=== PATIENT | female | born 1985 | race Caucasian/White ===

== ENCOUNTER 2018-11-18 21:38 | Emergency (ER) | payer MEDICAID ==
[~2018-11-18] VITALS: Ht 167.6 cm; Wt 57.4 kg
[2018-11-18] MEDS ORDERED: acetaminophen 325mg tablet PO ONE (23:55)
[2018-11-18] MEDS ORDERED: amox tr/potassium clavulanate 875/125mg TAB PO ONE (23:55)
[2018-11-18] MEDS ORDERED: BUPIVAcaine/PF 7.5mg/ml (0.75%) 10ml vial IJ ONE (23:55)
[2018-11-19] MEDS ORDERED: AMOX-580 PO (00:12)
[2018-11-19] MEDS ORDERED: HYDROcodone/acetaminophen 5mg/325mg tablet PO ONE (01:00)
--- NOTE | 2018-11-19 01:01 | NUR ---
Discussed pt's increased heart rate with HOLLY Kapoor along with pt's lack of pain relief with Tylenol; new order received.
[2018-11-19 01:04] VITALS: BP 118/81
== END 2018-11-19 01:11 | disposition home or self-care (01) ==
LOC: ER 21:39
DX: K02.9 Dental caries, unspecified (principal); M54.5 Low back pain; M54.2 Cervicalgia; Z79.899 Other long term (current) drug therapy
CPT/HCPCS: 99284; J3490

== ENCOUNTER 2023-12-14 04:25 | Emergency (ER) | payer MEDICAID ==
[~2023-12-14] VITALS: Ht 167.6 cm; Wt 56.8 kg
[2023-12-14] MEDS: normal saline 1000ml 1,000 ML IV ONE ×2 (05:04→06:00)
[2023-12-14 05:06] LABS: BASOPHILS # (AUTO) 0.1 X10'3 (0-0.2); BASOPHILS % (AUTO) 0.8 % (0-1); EOSINOPHILS % (AUTO) 0.2 % (0-6); HEMATOCRIT 39.1 % (35.0-45.0); HEMOGLOBIN 12.9 g/dl (12.0-16.0); LYMPHOCYTES % (AUTO) 11.8 % (21-51); MEAN CORPUSCULAR HEMOGLOBIN 33.2 PG (27.0-31.0); MEAN CORPUSCULAR HGB CONC 32.9 g/dL (33.0-36.5); MEAN CORPUSCULAR VOLUME 100.8 FL (78-98); MEAN PLATELET VOLUME 7.9 FL (7.4-10.4); MONOCYTES # (AUTO) 0.4 X10'3 (0-0.9); MONOCYTES % (AUTO) 4.9 % (2-12); NEUTROPHILS # (AUTO) 7.1 X10'3 (1.8-7.7); NEUTROPHILS % (AUTO) 82.3 % (42-75); PLATELET COUNT 237 X10'3 (140-440); RED BLOOD COUNT 3.88 X10'6 (4.20-5.60); RED CELL DISTRIBUTION WIDTH 12.7 % (11.5-14.5); WHITE BLOOD COUNT 8.6 X10'3 (4.5-11.0)
[2023-12-14 05:27] LABS: ALBUMIN 3.7 G/DL (3.4-5.0); ANION GAP 18 (8-16); BLOOD UREA NITROGEN 19 MG/DL (7-18); BUN/CREATININE RATIO 8.7 (10.0-20.0); CALCIUM 8.5 MG/DL (8.5-10.1); CHLORIDE 106 MMOL/L (99-107); CREATININE 2.19 MG/DL (0.40-0.90); GLUCOSE 119 MG/DL (70-104); SODIUM 142 MMOL/L (135-145); THYROID STIMULATING HORMONE 2.88 ulU/ml (0.34-4.50); TOTAL CARBON DIOXIDE 18.4 MMOL/L (24-32); eCRCL 31 ML/MIN; eGFR 25 ML/MIN
[2023-12-14 05:29] LABS: POTASSIUM 3.5 MMOL/L (3.5-5.1)
[2023-12-14] MEDS ORDERED: NO HOME MEDS (05:29)
[2023-12-14 05:30] LABS: ETHANOL < 10 MG/DL (<10)
[2023-12-14] MEDS: chlordiazePOXIDE 25mg capsule PO ONE (06:00)
[2023-12-14 06:13] LABS: CREATINE KINASE 253 U/L (26-192)
[2023-12-14] MEDS: ringers solution, lacted 1,000 ML IV ONE ×2 (07:12→09:59)
[2023-12-14 08:53] LABS: ALBUMIN 2.6 G/DL (3.4-5.0); ANION GAP 11 (8-16); BLOOD UREA NITROGEN 15 MG/DL (7-18); BUN/CREATININE RATIO 12.3 (10.0-20.0); CALCIUM 7.2 MG/DL (8.5-10.1); CHLORIDE 111 MMOL/L (99-107); CREATININE 1.22 MG/DL (0.40-0.90); GLUCOSE 62 MG/DL (70-104); POTASSIUM 3.5 MMOL/L (3.5-5.1); SODIUM 143 MMOL/L (135-145); TOTAL CARBON DIOXIDE 20.8 MMOL/L (24-32); eCRCL 56 ML/MIN; eGFR 49 ML/MIN
[2023-12-14] MEDS: diazepam inj 5 MG/ML inj. IV STA (10:00)
[2023-12-14 10:31] LABS: URINE HCG NEGATIVE (NEG)
[2023-12-14 10:33] LABS: BILIRUBIN,URINE NEGATIVE (Neg); CLARITY,URINE SLIGHTLY CLOUDY (Clear); COLOR,URINE YELLOW (Yellow); GLUCOSE, URINE NEGATIVE (Neg); KETONES,URINE 40 mg/dl (Neg); LEUKOCYTE ESTERASE ,URINE NEGATIVE (Neg); NITRITES, URINE POSITIVE (Neg); OCCULT BLOOD,URINE SMALL (Neg); PH,URINE 5.5 (4.8-8.0); PROTEIN,URINE TRACE mg/dl (Neg); UROBILINOGEN,URINE 0.2 E.U/dL (0.2-1.0)
[2023-12-14 10:39] LABS: UA COLLECTION TYPE OTHER
[2023-12-14 10:41] LABS: URINE AMPHETAMINE SCREEN POSITIVE (Neg); URINE BARBITUATE SCREEN NEGATIVE (Neg); URINE BENZODIAZEPINES SCREEN NEGATIVE (Neg); URINE CANNABINOID SCREEN NEGATIVE (Neg); URINE COCAINE SCREEN NEGATIVE (Neg); URINE METHADONE SCREEN NEGATIVE (Neg); URINE PHENCYCLIDINE SCREEN NEGATIVE (Neg)
[2023-12-14] MEDS: diazepam inj 5 MG/ML inj. IV ONE (10:41)
[2023-12-14 11:21] LABS: BACTERIA,URINE 4+ /HPF (Neg)
[2023-12-14 11:24] LABS: RBC,URINE NONE SEEN /HPF (0-2)
[2023-12-14 11:31] LABS: SQUAMOUS EPITHELIAL CELL,UR MODERATE /LPF (FEW)
[2023-12-14] MEDS: CefTRIAXone/D5W-Rocephin 1gm 50 ML IV ONE (15:15)
[2023-12-14] MEDS ORDERED: cephalexin 250mg capsule PO ONE (15:28)
[2023-12-14] MEDS: cephalexin 250mg capsule PO SCH (19:24)
[2023-12-14] MEDS: OLANZapine 2.5MG tablet PO SCH (19:24)
[2023-12-14 21:05] LABS: ALANINE AMINOTRANSFERASE 37 U/L (12-78); ALBUMIN 2.6 G/DL (3.4-5.0); ALBUMIN/GLOBULIN RATIO 0.9 (1.1-1.5); ALKALINE PHOSPHATASE 88 IU/L (46-116); ANION GAP 6 (8-16); ASPARTATE AMINO TRANSFERASE 75 U/L (10-37); BILIRUBIN,TOTAL 0.9 MG/DL (0.1-1.0); BLOOD UREA NITROGEN 14 MG/DL (7-18); BUN/CREATININE RATIO 17.1 (10.0-20.0); CALCIUM 7.9 MG/DL (8.5-10.1); CHLORIDE 106 MMOL/L (99-107); CREATININE 0.82 MG/DL (0.40-0.90); GLUCOSE 110 MG/DL (70-104); POTASSIUM 3.2 MMOL/L (3.5-5.1); SODIUM 139 MMOL/L (135-145); TOTAL CARBON DIOXIDE 27.2 MMOL/L (24-32); TOTAL PROTEIN 5.4 G/DL (6.4-8.2); eCRCL 83 ML/MIN; eGFR 78 ML/MIN
[2023-12-15 05:46] VITALS: BP 90/66
[2023-12-15 13:53] LABS: ALBUMIN 2.5 G/DL (3.4-5.0); ANION GAP 4 (8-16); BLOOD UREA NITROGEN 8 MG/DL (7-18); BUN/CREATININE RATIO 11.1 (10.0-20.0); CHLORIDE 111 MMOL/L (99-107); CREATININE 0.72 MG/DL (0.40-0.90); GLUCOSE 96 MG/DL (70-104); POTASSIUM 3.1 MMOL/L (3.5-5.1); SODIUM 143 MMOL/L (135-145); TOTAL CARBON DIOXIDE 27.6 MMOL/L (24-32); eCRCL 95 ML/MIN; eGFR > 90 ML/MIN
[2023-12-15 20:24] VITALS: PULSE 72; RESP 16; TEMP 98.6; O2SAT 99
== END 2023-12-15 20:29 ==
LOC: EEVIPCON 04:26 → ER 04:26
DX: T68.XXXA Hypothermia, initial encounter (principal); R45.851 Suicidal ideations; Z20.822 Contact with and (suspected) exposure to COVID-19; N17.9 Acute kidney failure, unspecified; E87.20 Acidosis, unspecified; F10.20 Alcohol dependence, uncomplicated; Z98.51 Tubal ligation status
CPT/HCPCS: 36415; 80048; 80053; 80305; 80320; 81001; 81025; 82550; 82948; 84443; 85025; 87811; 93005; 96361; 96365; 96375; 96376; 99285; J0696; J3360; J7030; J7120